=== PATIENT | female | born 1995 | race Asian ===

== ENCOUNTER 2019-03-23 08:53 | Emergency (ER) | payer OTHER ==
[2019-03-23] MEDS: DEXAMETHASONE 10 MG/ML 1 ML INJ IM (09:41)
== END 2019-03-23 10:20 | disposition home or self-care (01) ==
LOC: FTE 08:53
DX: L02.414 Cutaneous abscess of left upper limb (principal); L25.9 Unspecified contact dermatitis, unspecified cause
CPT/HCPCS: 96372; 99284-25; J1100